=== PATIENT | male | born 1940 | race Caucasian/White ===

== ENCOUNTER → 2017-05-01 | Outpatient (CLI) | payer OTHER ==
[~2017-05-01] MED LIST: BYSTOLIC5 MG PO; IMDUR 60MG. TAB60 MG PO; ISOSORBIDE DINI40 MG PO; LISINOPRIL 20MG20 MG PO; MELOXICAM15 MG PO; NITROLINGU14.5 GM/BO OR; NORCO1 TAB PO; PRAVASTATIN 40M40 MG PO; PREDNISONE20 MG PO; RANEXA1000 M2 PO; VICODIN 7.5/501 EACH PO; ZESTRIL40 MG PO
[2017-05-01 17:49] LABS: BUN 15 mg/dL (7-18)
[2017-05-01 17:50] LABS: GFR (ESTIMATED) 54 ML/MIN (>60)
== END ==
LOC: LAB 15:55
PROVIDERS: Surgery
DX: K43.2 Incisional hernia without obstruction or gangrene (principal)

== ENCOUNTER → 2017-05-02 | Outpatient (CLI) | payer OTHER ==
--- NOTE | 2017-05-02 16:01 | RADIOLOGY REPORT PS360 ---
CT ABD PELVIS W/O CONTRAST CLINICAL INDICATION: Abdominal pain, incisional hernia INCISIONAL HERNIA ORDERING PHYSICIAN: Jhony Cantor MD PATIENT AGE: 76 years COMPARISON: 10/29/2015 and TECHNIQUE: Axial images obtained with sagittal and coronal reformats. PROCEDURE: Oral Contrast: None IV Contrast: None . FINDINGS: Lung base images show coronary artery calcification. The liver, gallbladder, spleen, pancreas, and adrenal glands are unremarkable. There is a small diverticulum of the descending duodenum. Bilateral parapelvic renal cysts are present. No obstructing renal or ureteral calculi. There is a 2.8 cm left renal cortical cyst No intestinal obstruction or free air. There is diverticulosis of the descending colon and sigmoid colon but no evidence of diverticulitis. Prior appendectomy. No intestinal obstruction or free air. Postsurgical changes are present involving the small bowel in the right lower quadrant with some mild dilatation of the bowel loop and may be related to atonic changes. There is a small left inguinal hernia containing fat. There is a small ventral abdominal wall hernia just superior to the umbilicus containing a loop of small bowel without evidence of obstruction. This defect measures 2.6 cm. There is a small umbilical hernia containing fat. There is an additional small ventral hernia superior to the previously mentioned ventral hernia containing fat abdominal wall defect at 16 mm. There are degenerative changes of the lumbar spine with grade 1 spondylitic spondylolisthesis of L5 on S1. Prominent anterior osteophytes are present in the lower thoracic and lumbar spine. IMPRESSION: 1. Multiple abdominal wall hernias including 2 small supraumbilical hernias one of which contains a loop of small bowel without obstruction. There is a small umbilical hernia. There are 2 left femoral hernia containing fat to parapelvic renal cyst and left renal cortical cyst 3. Colonic diverticulosis. No evidence of diverticulitis
== END ==
LOC: RAD 09:14
DX: K43.2 Incisional hernia without obstruction or gangrene (principal)